=== PATIENT | male | born 1980 | race Caucasian/White ===

== ENCOUNTER 2017-06-08 19:35 | Emergency (ER) | payer OTHER ==
[~2017-06-08] VITALS: Ht 170.2 cm; Wt 74.8 kg
--- NOTE | 2017-06-08 19:51 | NUR ---
Pt ambulated to room with steady gait. Pt c/o rash to both hands and facial dryness since yesterday. Awaiting further eval.
--- NOTE | 2017-06-08 20:00 | NUR ---
Pt seen by Dr. Sandhu. Pt stable for discharge per MD. Pt given ACI. Pt verbalized understanding of dc instructions. Pt ambulated out of er with steady gait.
[2017-06-08 20:10] VITALS: BP 141/87
== END 2017-06-08 20:00 | disposition home or self-care (01) ==
LOC: ER 19:36
DX: L85.3 Xerosis cutis (principal)
CPT/HCPCS: 99281; A4663